=== PATIENT | female | born 1960 | race Caucasian/White ===

== ENCOUNTER 2018-04-17 05:34 | Day surgery (SDC) | payer OTHER ==
[2018-04-17] MEDS ORDERED: ROPIVACAINE 0.5 % 30 ML VIAL ×2 (06:45→09:42)
[2018-04-17] MEDS ORDERED: SOD CHLORIDE 0.9% 1,000 ML IV (06:54)
[2018-04-17] MEDS ORDERED: CEFAZOLIN 1 GM INJ (07:00)
[2018-04-17] MEDS ORDERED: PROPOFOL 20 ML (07:08)
[2018-04-17] MEDS ORDERED: LIDOCAINE 2% (SDV) 5 ML INJ (07:08)
[2018-04-17] MEDS ORDERED: MIDAZOLAM 1 MG/ML 2 ML INJ (07:08)
[2018-04-17] MEDS ORDERED: SUCCINYLCHOLINE CHLORIDE 100 MG/5 ML SYG IV (07:08)
[2018-04-17] MEDS ORDERED: ONDANSETRON 4 MG INJ ×2 (07:52→21:12)
[2018-04-17] MEDS ORDERED: FAMOTIDINE 20 MG INJ (07:52)
[2018-04-17] MEDS ORDERED: DEXAMETHASONE 4 MG/ML 1 ML INJ (07:52)
[2018-04-17] MEDS ORDERED: METOCLOPRAMIDE 10 MG INJ (07:53)
[2018-04-17] MEDS ORDERED: HYDROmorphONE 2 MG/ML SYG (08:04)
[2018-04-17] MEDS: EPINEPHrine 1 MG INJ (08:08)
[2018-04-17] MEDS ORDERED: ROCURONIUM 50 MG INJ (08:28)
[2018-04-17] MEDS ORDERED: hydrALAzine 20 MG INJ (08:31)
[2018-04-17] MEDS ORDERED: ACETAMINOPHEN 1000MG/100ML IV 100 ML (09:29)
[2018-04-17] MEDS ORDERED: POVIDONE IODINE 10% 28.4 GM OINT (09:42)
[2018-04-17] MEDS ORDERED: SUGAMMADEX SODIUM 200 MG/2 ML VIAL IV (09:45)
[2018-04-17] MEDS ORDERED: HYDROmorphONE 1 MG/5 ML IV SYRINGE IV ×3 (10:00)
[2018-04-17] MEDS ORDERED: MEPERIDINE 25 MG INJ IV (10:00)
[2018-04-17] MEDS ORDERED: ONDANSETRON 4 MG INJ IV (10:00)
[2018-04-17] MEDS ORDERED: oxyCODONE 5 MG TAB PO (10:00)
[2018-04-17] MEDS ORDERED: FENTAnyl 50 MCG/ML VIAL IV ×3 (10:00)
[2018-04-17] MEDS ORDERED: DIPHENHYDRAMINE 50 MG INJ IV (10:00)
[2018-04-17] MEDS ORDERED: PROCHLORPERAZINE 10 MG INJ IV (10:00)
[2018-04-17] MEDS: CEFAZOLIN 1 GM/50 ML (PMX) 50 ML IVPB ×2 (10:50→19:25)
[2018-04-17] MEDS: ONDANSETRON 4 MG INJ IV ×2 (19:25→21:13)
[2018-04-17] MEDS: FAMOTIDINE 20 MG INJ IV (21:08)
[2018-04-17] MEDS: ACETAMINOPHEN 1000MG/100ML IV 100 ML IVPB (21:28)
[2018-04-17] MEDS ORDERED: ACETAMINOPHEN 1000MG/100ML IV 100 ML IVPB (21:30)
== END 2018-04-17 21:50 | disposition home or self-care (01) ==
LOC: SDS 05:34
DX: M25.812 Other specified joint disorders, left shoulder (principal); M19.012 Primary osteoarthritis, left shoulder; M75.102 Unspecified rotator cuff tear or rupture of left shoulder, not specified as traumatic
CPT/HCPCS: 29823